=== PATIENT | male | born 1960 | race Caucasian/White ===

== ENCOUNTER 2019-12-08 20:09 | Inpatient (IN) | payer MEDICAID ==
[~2019-12-08] VITALS: Ht 190.5 cm; Wt 139.7 kg
[~2019-12-08 20:09] MED LIST: AMBIEN 10 MG TA10 MG PO; DESYREL300 MG PO; HYDROCODON-ACE1 EAC7 PO; LATUDA120 MG PO; LISINOPRIL2.5 MG PO; OMEPRAZOLE40 MG PO; REGLAN 10 MG TA10 MG PO; SENNA-TIME S T1 EACH PO; VITAMIN B-1100 M1 PO
[2019-12-08 20:12] VITALS: BP 171/110
[2019-12-08 20:49] LABS: ABSOLUTE BASOPHILS 0.1 thou/uL (0.0-0.2); ABSOLUTE LYMPHOCYTES 1.4 thou/uL (0.8-5.3); ABSOLUTE MONOCYTES 0.4 thou/uL (0.0-1.2); ABSOLUTE NEUTROPHILS 4.8 thou/uL (1.6-8.1); EOSINOPHILS 0.7 %; HEMATOCRIT 48.7 % (42.0-52.0); LYMPHOCYTES 21.4 %; MCH 32.5 pg (26.0-34.0); MCHC 34.9 g/dL (28.0-37.0); MCV 93.1 fL (80.0-100.0); MONOCYTES 6.5 %; MPV 7.8 fl. (7.2-11.1); NUCLEATED RBCS 0 /100WBC; PLATELET COUNT* 193 thou/uL (150-400); POLYS 70.4 %; RBC 5.23 mil/uL (4.50-6.00); RDW-CV 16.9 % (10.5-14.5); WBC 6.8 thou/uL (4.0-11.0)
[2019-12-08 20:58] LABS: CALCIUM 8.7 mg/dL (8.5-10.1); CREATININE 0.8 mg/dL (0.6-1.3); POTASSIUM 3.8 mmol/L (3.5-5.1)
[2019-12-08 21:02] LABS: APTT 25.2 Seconds (25.0-31.3); INR 0.9; PROTIME 9.7 Seconds (9.20-11.50)
[2019-12-08 21:08] LABS: ALBUMIN 3.9 g/dL (3.4-5.0); TOTAL BILIRUBIN 0.6 mg/dL (<0.1-1.0); TOTAL PROTEIN 7.6 g/dL (6.4-8.2)
[2019-12-08 23:25] VITALS: BP 177/111
[2019-12-09] VITALS (33 sets, daily range): BP systolic 72–202; BP diastolic 34–113
[2019-12-10] VITALS (23 sets, daily range): BP systolic 99–138; BP diastolic 58–84
[2019-12-10 03:18] LABS: ALBUMIN 2.7 g/dL (3.4-5.0); CALCIUM 6.9 mg/dL (8.5-10.1); CREATININE 1.1 mg/dL (0.6-1.3); MAGNESIUM 1.6 mg/dL (1.8-2.4); POTASSIUM 3.8 mmol/L (3.5-5.1); TOTAL PROTEIN 5.6 g/dL (6.4-8.2)
[2019-12-10 03:29] LABS: HEMATOCRIT 39.8 % (42.0-52.0); MCH 32.3 pg (26.0-34.0); MCHC 34.1 g/dL (28.0-37.0); MCV 94.5 fL (80.0-100.0); MPV 8.7 fl. (7.2-11.1); RBC 4.21 mil/uL (4.50-6.00); RDW-CV 17.1 % (10.5-14.5); WBC 5.9 thou/uL (4.0-11.0)
[2019-12-10 03:31] LABS: HEMOGLOBIN 13.6 gm/dL (14.0-18.0)
[2019-12-10 04:50] LABS: AMP/METHAMP Negative (Negative); BARBITURATES Negative (Negative); BENZODIAZEPINES POSITIVE (Negative); COCAINE Negative (Negative); METHADONE Negative (Negative); OPIATES Negative (Negative); PCP Negative (Negative); THC Negative (Negative)
[2019-12-11] VITALS (12 sets, daily range): BP systolic 110–166; BP diastolic 60–107
[2019-12-11 03:13] LABS: HEMATOCRIT 41.3 % (42.0-52.0); HEMOGLOBIN 14.2 gm/dL (14.0-18.0); MCH 32.7 pg (26.0-34.0); MCHC 34.4 g/dL (28.0-37.0); MCV 95.3 fL (80.0-100.0); MPV 8.8 fl. (7.2-11.1); RBC 4.34 mil/uL (4.50-6.00); RDW-CV 16.5 % (10.5-14.5); WBC 4.7 thou/uL (4.0-11.0)
[2019-12-11 03:25] LABS: CALCIUM 7.6 mg/dL (8.5-10.1); CREATININE 0.8 mg/dL (0.6-1.3); MAGNESIUM 2.2 mg/dL (1.8-2.4); POTASSIUM 3.9 mmol/L (3.5-5.1)
[2019-12-12 00:01] VITALS: BP 157/100
[2019-12-12 08:00] VITALS: BP 151/101
[2019-12-12] MEDS ORDERED: HYDROCHLOROTHIA25 M2 PO (11:17)
[2019-12-12] MEDS ORDERED: CLONIDINE HCL0.2 M2 PO (11:17)
[2019-12-12 11:49] VITALS: BP 161/100
[2019-12-12 13:37] VITALS: BP 161/100
--- NOTE | 2019-12-14 14:59 | EKG ---
[place] [address] ELECTROCARDIOGRAM REPORT Name: PATRICIA PEDRAZA Room: [address] IN [facility]#: [id number] Admission: 12/08/19 Attend Phys: Chichi gardner Sa Discharge: 12/12/19 Date of : 60 Date of Service: 12/08/192010 Report #: [id number] THIS REPORT FOR: //name// [facility] ED Test Date: 2019-12-08 Test Time: 20:11:56 Pat Name: PATRICIA PEDRAZA Department: Room: [facility] Gender: M Shopping Investigator: JUJU : 1960 Requested By: Linnea Gates Order Number: [id number] MD: Santi Barcenas Measurements Intervals [place] Rate: 115 P: 45 [place]: 168 QRS: 5 QRSD: 77 T: 26 QT: 316 QTc: 437 Interpretive Statements Sinus tachycardia Compared to ECG 11/22/2019 21:25:32 No significant changes Electronically Signed On 12-10-2019 10:21:46 REAL ESTATE OFFICE SUPERVISOR by Santi Barcenas [email or web address] <ELECTRONICALLY SIGNED> By: Santi Barcenas MD, FAC 12/10/19 1021 10 10 Santi Barcenas MD, [facility] /EPI
== END 2019-12-12 15:19 | disposition home or self-care (01) | DRG 384 ==
LOC: M.ERS 20:09 → M.TBA-ER 22:55 → M.ICU 22:55 → M.2W 12-11 22:58
PROVIDERS: Internal Medicine; Personal Emergency Response Attendant; ADMIT Family Medicine
DX: K27.9 Peptic ulcer, site unspecified, unspecified as acute or chronic, without hemorrhage or perforation (principal); F10.231 Alcohol dependence with withdrawal delirium; K20.9 Esophagitis, unspecified; I10 Essential (primary) hypertension; E66.9 Obesity, unspecified; Y90.9 Presence of alcohol in blood, level not specified; I25.118 Atherosclerotic heart disease of native coronary artery with other forms of angina pectoris; K31.84 Gastroparesis; G47.00 Insomnia, unspecified; I95.2 Hypotension due to drugs; T50.995A Adverse effect of other drugs, medicaments and biological substances, initial encounter; F10.229 Alcohol dependence with intoxication, unspecified; Z68.38 Body mass index [BMI] 38.0-38.9, adult; Z79.899 Other long term (current) drug therapy; Z87.11 Personal history of peptic ulcer disease; Y92.89 Other specified places as the place of occurrence of the external cause

== ENCOUNTER 2020-01-07 17:23 | Inpatient (IN) | payer MEDICAID ==
[~2020-01-07] VITALS: Ht 190.5 cm; Wt 138.4 kg
[~2020-01-07 17:23] MED LIST changes: +CLONIDINE HCL0.2 M2 PO; +HYDROCHLOROTHIA25 M2 PO
[2020-01-07 17:27] VITALS: BP 132/107
[2020-01-07 18:24] LABS: ABSOLUTE EOSINOPHILS 0.1 thou/uL (0.0-0.7)
[2020-01-07 18:35] LABS: CALCIUM 8.2 mg/dL (8.5-10.1); CREATININE 0.8 mg/dL (0.6-1.3); POTASSIUM 3.4 mmol/L (3.5-5.1)
[2020-01-07 18:44] LABS: ABSOLUTE MONOCYTES 0.7 thou/uL (0.0-1.2); ABSOLUTE NEUTROPHILS 5.4 thou/uL (1.6-8.1); BASOPHILS 0.3 %; HEMATOCRIT 50.3 % (42.0-52.0); LYMPHOCYTES 32.2 %; MCH 32.3 pg (26.0-34.0); MCHC 35.8 g/dL (28.0-37.0); MCV 90.2 fL (80.0-100.0); MPV 8.4 fl. (7.2-11.1); NUCLEATED RBCS 0 /100WBC; PLATELET COUNT* 219 thou/uL (150-400); POLYS 58.5 %; RBC 5.57 mil/uL (4.50-6.00); RDW-CV 14.3 % (10.5-14.5); WBC 9.3 thou/uL (4.0-11.0)
[2020-01-07 18:48] LABS: ALBUMIN 3.4 g/dL (3.4-5.0); MAGNESIUM 1.8 mg/dL (1.8-2.4); TOTAL BILIRUBIN 0.6 mg/dL (<0.1-1.0); TOTAL PROTEIN 7.1 g/dL (6.4-8.2)
[2020-01-07 20:25] VITALS: BP 143/87
[2020-01-07 23:47] VITALS: BP 143/91
[2020-01-07 23:48] VITALS: BP 116/75
[2020-01-08 04:11] VITALS: BP 156/102
[2020-01-08 07:51] LABS: CALCIUM 7.2 mg/dL (8.5-10.1); MAGNESIUM 1.6 mg/dL (1.8-2.4); PHOSPHORUS* 2.8 mg/dL (2.5-4.9); POTASSIUM 3.7 mmol/L (3.5-5.1)
[2020-01-08 08:00] VITALS: BP 153/105
--- NOTE | 2020-01-08 10:07 | EKG ---
[place] [address] ELECTROCARDIOGRAM REPORT Name: PATRICIA PEDRAZA Room: [address] IN ..#: [id number] Admission: 01/07/20 Attend Phys: Brie Treviño, Discharge: Date of : 60 Date of Service: 01/07/20 1728 Report #: [id number] THIS REPORT FOR: //name// [facility] ED Test Date: 2020-01-07 Test Time: 17:28:18 Pat Name: PATRICIA PEDRAZA Department: Room: [facility] Gender: M Sql Analyst: CCD : 1960 Requested By: Philly Monroy Order Number: [id number] MD: Fantasma Thomas Measurements Intervals [place] Rate: 111 P: 31 [place]: 170 QRS: 16 QRSD: 85 T: 12 QT: 332 QTc: 451 Interpretive Statements Sinus tachycardia Compared to ECG 12/08/2019 20:11:56 No significant changes Electronically Signed On 01-08-2020 10:06:11 CDT by Fantasma Thomas [email or web address] <ELECTRONICALLY SIGNED> By: Fantasma Thomas MD, [facility] 01/08/20 1006 1728 1728 Fantasma Thomas MD, [facility] /EPI
[2020-01-08 12:00] VITALS: BP 112/68
[2020-01-08 15:00] VITALS: BP 113/65
[2020-01-08 19:55] VITALS: BP 102/62
[2020-01-09] VITALS: BP 139/89
[2020-01-09 03:55] VITALS: BP 139/80
[2020-01-09 04:24] LABS: MCH 32.3 pg (26.0-34.0); MCHC 35.4 g/dL (28.0-37.0); MCV 91.3 fL (80.0-100.0); MPV 8.3 fl. (7.2-11.1); RBC 4.61 mil/uL (4.50-6.00); RDW-CV 13.6 % (10.5-14.5); WBC 6.7 thou/uL (4.0-11.0)
[2020-01-09 04:44] LABS: HEMOGLOBIN 14.9 gm/dL (14.0-18.0)
[2020-01-09 07:12] LABS: ALBUMIN 2.8 g/dL (3.4-5.0); CALCIUM 7.5 mg/dL (8.5-10.1); CREATININE 0.9 mg/dL (0.6-1.3); MAGNESIUM 1.9 mg/dL (1.8-2.4); POTASSIUM 3.5 mmol/L (3.5-5.1); TOTAL BILIRUBIN 0.9 mg/dL (<0.1-1.0); TOTAL PROTEIN 5.6 g/dL (6.4-8.2)
[2020-01-09 08:00] VITALS: BP 129/68
[2020-01-09 11:47] VITALS: BP 145/96
[2020-01-09 16:05] VITALS: BP 129/82
[2020-01-09 19:57] VITALS: BP 126/59
[2020-01-10 00:08] VITALS: BP 139/94
[2020-01-10 03:22] LABS: ABSOLUTE BASOPHILS 0.1 thou/uL (0.0-0.2); ABSOLUTE EOSINOPHILS 0.2 thou/uL (0.0-0.7); ABSOLUTE MONOCYTES 0.4 thou/uL (0.0-1.2); ABSOLUTE NEUTROPHILS 3.7 thou/uL (1.6-8.1); EOSINOPHILS 3.2 %; HEMATOCRIT 39.9 % (42.0-52.0); HEMOGLOBIN 14.3 gm/dL (14.0-18.0); LYMPHOCYTES 31.6 %; MCH 32.7 pg (26.0-34.0); MCHC 35.9 g/dL (28.0-37.0); MCV 91.1 fL (80.0-100.0); MONOCYTES 6.1 %; MPV 8.8 fl. (7.2-11.1); NUCLEATED RBCS 0 /100WBC; PLATELET COUNT* 137 thou/uL (150-400); POLYS 58.1 %; RBC 4.38 mil/uL (4.50-6.00); RDW-CV 13.7 % (10.5-14.5); WBC 6.3 thou/uL (4.0-11.0)
[2020-01-10 04:16] VITALS: BP 165/103
[2020-01-10 05:27] LABS: ALBUMIN 2.8 g/dL (3.4-5.0); CALCIUM 7.7 mg/dL (8.5-10.1); CREATININE 0.8 mg/dL (0.6-1.3); POTASSIUM 3.7 mmol/L (3.5-5.1); TOTAL BILIRUBIN 0.6 mg/dL (<0.1-1.0)
[2020-01-10 11:37] VITALS: BP 134/79
[2020-01-10] MEDS ORDERED: PRENATAL VITAM1 EACH PO (12:27)
[2020-01-10] MEDS ORDERED: ATIVAN2 MG PO (12:27)
[2020-01-10] MEDS ORDERED: VITAMIN B-1100 M2 PO (12:27)
[2020-01-10 12:55] VITALS: BP 134/79
== END 2020-01-10 14:30 | disposition home or self-care (01) | DRG 896 ==
LOC: M.ERS 17:23 → M.2W 18:51 → M.TBA-ER 18:51 → M.2W 20:10
PROVIDERS: Emergency Medicine Emergency Medical Services; Internal Medicine; ADMIT Internal Medicine
DX: F10.239 Alcohol dependence with withdrawal, unspecified (principal); E43 Unspecified severe protein-calorie malnutrition; I10 Essential (primary) hypertension; E66.9 Obesity, unspecified; I25.10 Atherosclerotic heart disease of native coronary artery without angina pectoris; K76.9 Liver disease, unspecified; Z68.38 Body mass index [BMI] 38.0-38.9, adult; Z87.11 Personal history of peptic ulcer disease; I25.2 Old myocardial infarction

== ENCOUNTER 2020-03-20 23:52 | Emergency (ER) | payer MEDICAID ==
[~2020-03-20] VITALS: Ht 190.5 cm; Wt 131.5 kg
[~2020-03-20 23:52] MED LIST changes: +ATIVAN2 MG PO; +PRENATAL VITAM1 EACH PO; +VITAMIN B-1100 M2 PO
[2020-03-21] MEDS ORDERED: LATUDA20 MG PO (00:02)
[2020-03-21] MEDS ORDERED: GLYBURIDE 5 MG T5 M1 PO (00:03)
[2020-03-21 00:22] LABS: HEMATOCRIT 45.9 % (42.0-52.0); MCH 32.6 pg (26.0-34.0); MCHC 34.8 g/dL (28.0-37.0); MCV 93.8 fL (80.0-100.0); MPV 7.6 fl. (7.2-11.1); RBC 4.89 mil/uL (4.50-6.00); RDW-CV 14.9 % (10.5-14.5); WBC 6.3 thou/uL (4.0-11.0)
[2020-03-21 00:33] LABS: CALCIUM 7.7 mg/dL (8.5-10.1); CREATININE 0.9 mg/dL (0.6-1.3); POTASSIUM 3.1 mmol/L (3.5-5.1)
[2020-03-21 00:35] LABS: INR 0.9; PROTIME 9.4 Seconds (9.20-11.50)
[2020-03-21 00:38] LABS: ALBUMIN 3.7 g/dL (3.4-5.0); TOTAL BILIRUBIN 0.6 mg/dL (<0.1-1.0); TOTAL PROTEIN 7.4 g/dL (6.4-8.2)
[2020-03-21 00:39] LABS: ACETAMINOPHEN < 2 ug/mL (10-30); ALCOHOL 333 mg/dL (<10); SALICYLATE < 2.8 mg/dL (2.8-20.0)
[2020-03-21 03:14] LABS: URINE BILIRUBIN NEGATIVE (Negative); URINE BLOOD TRACE (Negative); URINE CLARITY CLEAR; URINE COLOR YELLOW; URINE GLUCOSE-RANDOM NEGATIVE (Negative); URINE KETONES TRACE (Negative); URINE LEUKOCYTES NEGATIVE (Negative); URINE NITRITE NEGATIVE (Negative); URINE PROTEIN 1+ (Negative); URINE SPECIFIC GRAVITY 1.025 (1.005-1.030); URINE UROBILINOGEN 0.2 E.U./dl (0.2-1.0)
[2020-03-21 03:21] LABS: AMP/METHAMP Negative (Negative); BARBITURATES Negative (Negative); BENZODIAZEPINES POSITIVE (Negative); COCAINE Negative (Negative); METHADONE Negative (Negative); OPIATES Negative (Negative); PCP Negative (Negative); THC Negative (Negative)
[2020-03-21] MEDS ORDERED: CHLORDIAZEPOXID25 M1 PO (03:32)
[2020-03-21 03:50] VITALS: BP 155/93
--- NOTE | 2020-03-21 16:53 | EKG ---
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: : 1960 Requested By: Linnea Gates Order Number: [id number] MD: Fantasma Thomas Measurements Intervals [place] Rate: 101 P: 54 [place]: 168 QRS: 22 QRSD: 96 T: 38 QT: 358 QTc: 465 Interpretive Statements Sinus tachycardia Low voltage, extremity and precordial leads Compared to ECG 01/07/2020 17:28:18 Low QRS voltage now present Electronically Signed On 03-21-2020 16:52:03 CDT by Fantasma Thomas [email or web address] <ELECTRONICALLY SIGNED> By: Fantasma Thomas MD, [facility] 03/21/20 1652 2357 2357 Fantasma Thomas MD, [facility] /EPI
== END 2020-03-21 04:07 | disposition home or self-care (01) ==
LOC: M.ERS 23:52
PROVIDERS: Personal Emergency Response Attendant
DX: F10.229 Alcohol dependence with intoxication, unspecified (principal); F32.9 Major depressive disorder, single episode, unspecified; E66.9 Obesity, unspecified; R11.2 Nausea with vomiting, unspecified; I10 Essential (primary) hypertension; Z68.36 Body mass index [BMI] 36.0-36.9, adult; Z79.899 Other long term (current) drug therapy; Y90.0 Blood alcohol level of less than 20 mg/100 ml

== ENCOUNTER 2020-05-06 11:21 | Emergency (ER) | payer MEDICAID ==
[~2020-05-06] VITALS: Ht 190.5 cm; Wt 129.3 kg
[~2020-05-06 11:21] MED LIST changes: +CHLORDIAZEPOXID25 M1 PO; +GLYBURIDE 5 MG T5 M1 PO; +LATUDA20 MG PO
[2020-05-06 11:54] LABS: ABSOLUTE EOSINOPHILS 0.1 thou/uL (0.0-0.7); ABSOLUTE LYMPHOCYTES 2.2 thou/uL (0.8-5.3); ABSOLUTE MONOCYTES 0.7 thou/uL (0.0-1.2); BASOPHILS 0.3 %; EOSINOPHILS 0.7 %; HEMATOCRIT 51.9 % (42.0-52.0); HEMOGLOBIN 18.1 gm/dL (14.0-18.0); LYMPHOCYTES 24.1 %; MCH 32.8 pg (26.0-34.0); MCHC 34.9 g/dL (28.0-37.0); MCV 93.8 fL (80.0-100.0); MONOCYTES 7.5 %; MPV 7.8 fl. (7.2-11.1); NUCLEATED RBCS 0 /100WBC; PLATELET COUNT* 322 thou/uL (150-400); POLYS 67.4 %; RBC 5.53 mil/uL (4.50-6.00); WBC 8.9 thou/uL (4.0-11.0)
[2020-05-06 12:03] LABS: CALCIUM 7.9 mg/dL (8.5-10.1); CREATININE 0.9 mg/dL (0.6-1.3); POTASSIUM 3.3 mmol/L (3.5-5.1)
[2020-05-06 12:06] LABS: PROTIME 10.6 Seconds (9.20-11.50)
[2020-05-06 12:14] LABS: ALBUMIN 3.5 g/dL (3.4-5.0); TOTAL BILIRUBIN 0.4 mg/dL (<0.1-1.0); TOTAL PROTEIN 7.3 g/dL (6.4-8.2)
--- NOTE | 2020-05-06 16:06 | EKG ---
[place] [address] ELECTROCARDIOGRAM REPORT Name: PATRICIA PEDRAZA Room: [facility]#: [id number] Admission: 05/06/20 Attend Phys: Discharge: Date of : 60 Date of Service: 05/06/20 1127 Report #: [id number] THIS REPORT FOR: //name// [facility] ED Test Date: 2020-05-06 Test Time: 11:27:01 Pat Name: PATRICIA PEDRAZA Department: Room: Gender: Javascript Application Developer: [facility] : 1960 Requested By: Linnea Gates Order Number: [id number] MD: Fantasma Thomas Measurements Intervals [place] Rate: 121 P: -6 TN: 152 QRS: 23 QRSD: 102 T: 59 QT: 314 QTc: 446 Interpretive Statements Sinus tachycardia Marked Baseline wander inferior leads Compared to ECG 03/20/2020 23:57:52 Heart rate has increased Electronically Signed On 05-06-2020 16:06:26 CDT by Fantasma Thomas [email or web address] <ELECTRONICALLY SIGNED> By: Fantasma Thomas MD, [facility] 05/06/20 1606 1127 1127 Fantasma Thomas MD, [facility] /EPI
--- NOTE | 2020-05-06 16:07 | EKG ---
[place] [address] ELECTROCARDIOGRAM REPORT Name: PATRICIA PEDRAZA Room: [facility]#: [id number] Admission: 05/06/20 Attend Phys: Discharge: Date of : 60 Date of Service: 05/06/20 1150 Report #: [id number] THIS REPORT FOR: //name// [facility] ED Test Date: 2020-05-06 Test Time: 11:50:35 Pat Name: PATRICIA PEDRAZA Department: Room: Gender: Principal Planner: BINH : 1960 Requested By: Linnea Gates Order Number: [id number] MD: Fantasma Thomas Measurements Intervals [place] Rate: 117 P: 25 [place]: 168 QRS: 17 QRSD: 80 T: 37 QT: 317 QTc: 443 Interpretive Statements Sinus tachycardia Compared to ECG 05/06/2020 11:27:01 Myocardial infarct finding no longer present Electronically Signed On 05-06-2020 16:07:21 CDT by Fantasma Thomas [email or web address] <ELECTRONICALLY SIGNED> By: Fantasma Thomas MD, [facility] 05/06/20 1607 1150 1150 Fantasma Thomas MD, FAC /EPI
[2020-05-06] MEDS ORDERED: CHLORDIAZEPOXID25 M1 PO (18:09)
[2020-05-06] MEDS ORDERED: ATIVAN1 M1 PO (22:47)
[2020-05-06 23:00] VITALS: BP 137/90
== END 2020-05-06 23:05 | disposition home or self-care (01) ==
LOC: M.ERS 11:21
PROVIDERS: Personal Emergency Response Attendant
DX: F10.129 Alcohol abuse with intoxication, unspecified (principal); Y90.8 Blood alcohol level of 240 mg/100 ml or more; Z20.828 Contact with and (suspected) exposure to other viral communicable diseases; I10 Essential (primary) hypertension; E66.9 Obesity, unspecified; Z68.35 Body mass index [BMI] 35.0-35.9, adult

== ENCOUNTER 2020-05-20 21:08 | Inpatient (IN) | payer MEDICAID ==
[~2020-05-20] VITALS: Ht 190.5 cm; Wt 133.4 kg
[~2020-05-20 21:08] MED LIST changes: +ATIVAN1 M1 PO
[2020-05-20 21:16] VITALS: BP 137/80
[2020-05-20] MEDS ORDERED: PRINIVIL10 MG PO (21:19)
[2020-05-20 21:45] LABS: ABSOLUTE BASOPHILS 0.1 thou/uL (0.0-0.2); ABSOLUTE EOSINOPHILS 0.2 thou/uL (0.0-0.7); ABSOLUTE LYMPHOCYTES 2.5 thou/uL (0.8-5.3); ABSOLUTE MONOCYTES 0.5 thou/uL (0.0-1.2); ABSOLUTE NEUTROPHILS 2.6 thou/uL (1.6-8.1); BASOPHILS 1.1 %; EOSINOPHILS 2.6 %; HEMATOCRIT 46.8 % (42.0-52.0); HEMOGLOBIN 16.1 gm/dL (14.0-18.0); LYMPHOCYTES 42.8 %; MCH 32.6 pg (26.0-34.0); MCHC 34.4 g/dL (28.0-37.0); MCV 94.8 fL (80.0-100.0); MONOCYTES 9.2 %; MPV 7.9 fl. (7.2-11.1); NUCLEATED RBCS 0 /100WBC; PLATELET COUNT* 160 thou/uL (150-400); POLYS 44.3 %; RBC 4.93 mil/uL (4.50-6.00); RDW-CV 15.3 % (10.5-14.5); WBC 5.9 thou/uL (4.0-11.0)
[2020-05-20 21:57] LABS: CALCIUM 7.7 mg/dL (8.5-10.1); POTASSIUM 3.6 mmol/L (3.5-5.1); PROTIME 10.2 Seconds (9.20-11.50)
[2020-05-20 22:12] LABS: ALBUMIN 3.3 g/dL (3.4-5.0); MAGNESIUM 2.1 mg/dL (1.8-2.4); TOTAL BILIRUBIN 0.2 mg/dL (<0.1-1.0); TOTAL PROTEIN 6.7 g/dL (6.4-8.2)
[2020-05-21 04:00] VITALS: BP 123/95
[2020-05-21 07:51] VITALS: BP 133/101
--- NOTE | 2020-05-21 10:27 | EKG ---
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
--- NOTE | 2020-05-21 10:30 | NUR ---
DR. JACOME HAS CLEARED PT FOR CARDIAC ISSUES. AWAITING TO HEAR FROM DR. ZAMUDIO IF PATIENT IS CLEARED TO GO HOME.
[2020-05-21 11:51] VITALS: BP 158/111
[2020-05-21] MEDS ORDERED: PROTONIX40 M1 PO (11:52)
--- NOTE | 2020-05-21 12:03 | NUR ---
PER DR. ZAMUDIO, THE PATIENT CAN BE DISCHARGED TO FOLLOW UP WITH PCP, HAS A SCRIPT OF PROTONIX SENT TO PHARMACY ON FILE. CURRENTLY AWAITING INPATIENT RN TO DISCHARGE PATIENT FROM ER. PT CONTINUES TO BE CONNECTED TO ALL MONITORS, HAS AMBULATED TO RESTROOM AND BACK INDEPENDENTLY, GIVEN COKE TO DRINK AND EXPLAINED PLAN OF CARE AND IMPENDING DISCHARGE. PT VOICES UNDERSTANDING AND IS RESTING WITH IV FLUIDS INFUSING.
[2020-05-21 12:15] VITALS: BP 158/111
[2020-05-21 13:00] VITALS: BP 152/107
--- NOTE | 2020-05-22 14:25 | CON ---
[address] [address] CONSULTATION Name: PATRICIA PEDRAZA Room: [address] IN [facility].#: [id number] Admission: 05/20/20 Attend Phys: Aakash Ardon Discharge: 05/21/20 Date of : 60 Report #: [id number] THIS REPORT FOR: //name// cc: NONI [facility] family physician/PCP NONI - No family physician/PCP ~ THIS REPORT FOR: //name// CC: [facility] physician/PCP Troy Tian DATE OF SERVICE: 05/21/2020 CARDIOLOGY CONSULTATION HISTORY OF PRESENT ILLNESS: The patient is a 60-year-old single white male who I was asked to see in the hospital today after he complained of chest pain. The patient has had multiple hospitalizations here at [facility] in the past. He was admitted in November this year with chest pain, felt to be secondary to peptic ulcer disease. He apparently was diagnosed with esophagitis and upper gastrointestinal bleed. He has a history of alcohol abuse and went through withdrawal. He states he actually had hospital at [facility] 10 years ago, had a heart catheterization and there was no significant coronary artery disease. He has been treated medically since that time. He is not very active at this time because of arthritis. He has a history of alcohol abuse. In the past, he will drink 2/5 a day. He has been through many times. He apparently was recently admitted to [facility]. He was discharged to meet with his counselor and go to rehab. Yesterday, he drank a fifth of whiskey. He was watching TV last night when he felt some chest pressure. He felt diaphoretic, short of breath, nausea. Paramedics were called. He was brought here to [facility] by ambulance. The pain resolved after 2 hours. He denied the pain being related to fever or cough. He denied any bleeding. He denied the pain being related to taking a deep breath. He denied any recent trauma to his chest. Denied any belch with the episode. The pain did radiate into his right shoulder. He does get short of breath when he exerts himself. He notes occasional episodes of heart rate will increase, but has had no recent syncope. PAST MEDICAL HISTORY: He has had right shoulder surgery. He has a history of hypertension. He has a history of bipolar disorder. MEDICATIONS: On admission included Prilosec, clonidine, Librium, Reglan, hydrochlorothiazide, Ativan. He has lisinopril. ALLERGIES: He has no known drug allergies. FAMILY HISTORY: [place] [address] CONSULTATION Name: PATRICIA PEDRAZA Room: [address]#: [id number] Admission: 05/20/20 Attend Phys: Aakash Ardon Discharge: 05/21/20 Date of : 60 Report #: [id number] SOCIAL HISTORY: He is . Currently lives in a hotel here in [place]. He is on disability due to arthritis. No smoking. Still drinks every day. He has gone to AA in the past. No illicit drug use. REVIEW OF SYSTEMS: No history of stroke. He apparently had a seizure in the past. No history of asthma. He has a fatty liver. No hepatitis. No GI bleeding. He has had DTs in the past. No history of cancer. PHYSICAL EXAMINATION: GENERAL: Revealed a middle-aged male. He was 6 feet 3, weighing 290 pounds. VITAL SIGNS: Blood pressure 130/90, pulse 90, he is afebrile. HEENT: He was anicteric. Conjunctivae pink. Mucous membranes moist. NECK: Veins difficult to assess due to obesity. No carotid bruits. CHEST: Clear to auscultation. CARDIOVASCULAR: Regular rate and rhythm, no murmur. ABDOMEN: Obese. EXTREMITIES: Had no pitting edema. SKIN: Cool and dry. NEUROLOGIC: Nonfocal. His ECG on arrival last night showed a sinus rhythm. There was no ST- or T-wave change noted. The patient had an echocardiogram in November when he was here with alcohol withdrawal that showed ejection fraction of 65%, no significant valvular abnormalities. His workup last night, he had a portable chest x-ray that showed normal heart size and clear lung barragan. LABORATORY WORK: Sodium 140, creatinine 1.0. Troponins were all 0.06. His white blood cell count 5.9, hemoglobin 16.1. His urine drug screen positive for benzodiazepines. Alcohol level 275. IMPRESSION AND RECOMMENDATIONS: 1. History of alcohol abuse with seizures esophagitis and blackout spells in the past. Currently scheduled to undergo rehabilitation. 2. Intoxication. I would be concerned about delirium tremens. 3. Obesity. 4. Hypertension. The patient is on DEBORAH inhibitor. 5. Degenerative joint disease. 6. History of bipolar disorder. 7. Chest pain. No evidence of acute myocardial infarction. Recommend no further cardiac evaluation. Suspect GI. <ELECTRONICALLY SIGNED> By: Santi Barcenas MD, [facility] 05/22/20 1425 0917 1026David Vi Barcenas MD, FACC /nt
== END 2020-05-21 12:58 | disposition home or self-care (01) | DRG 392 ==
LOC: M.ERS 21:08 → M.TBA-ER 23:58
PROVIDERS: Emergency Medicine; ADMIT Internal Medicine; ATTEND Internal Medicine
DX: K29.20 Alcoholic gastritis without bleeding (principal); I10 Essential (primary) hypertension; E66.9 Obesity, unspecified; I25.10 Atherosclerotic heart disease of native coronary artery without angina pectoris; F31.9 Bipolar disorder, unspecified; F10.129 Alcohol abuse with intoxication, unspecified; M19.90 Unspecified osteoarthritis, unspecified site; Z20.828 Contact with and (suspected) exposure to other viral communicable diseases; Z68.36 Body mass index [BMI] 36.0-36.9, adult; Z87.11 Personal history of peptic ulcer disease; Z82.49 Family history of ischemic heart disease and other diseases of the circulatory system; Z79.899 Other long term (current) drug therapy

== ENCOUNTER 2020-09-14 11:06 | Inpatient (IN) | payer MEDICAID ==
[~2020-09-14] VITALS: Ht 193 cm; Wt 135.6 kg
[~2020-09-14 11:06] MED LIST changes: +PRINIVIL10 MG PO; +PROTONIX40 M1 PO
[2020-09-14 11:08] VITALS: BP 162/104
[2020-09-14 11:45] LABS: ABSOLUTE BASOPHILS 0.1 thou/uL (0.0-0.2); ABSOLUTE EOSINOPHILS 0.1 thou/uL (0.0-0.7); ABSOLUTE LYMPHOCYTES 1.7 thou/uL (0.8-5.3); ABSOLUTE MONOCYTES 0.5 thou/uL (0.0-1.2); ABSOLUTE NEUTROPHILS 2.2 thou/uL (1.6-8.1); BASOPHILS 2.7 %; EOSINOPHILS 2.5 %; HEMATOCRIT 50.7 % (42.0-52.0); HEMOGLOBIN 17.4 gm/dL (14.0-18.0); LYMPHOCYTES 37.3 %; MCH 33.4 pg (26.0-34.0); MCHC 34.3 g/dL (28.0-37.0); MCV 97.6 fL (80.0-100.0); MONOCYTES 9.8 %; MPV 7.4 fl. (7.2-11.1); NUCLEATED RBCS 0 /100WBC; PLATELET COUNT* 307 thou/uL (150-400); POLYS 47.7 %; RBC 5.19 mil/uL (4.50-6.00); RDW-CV 15.4 % (10.5-14.5); WBC 4.6 thou/uL (4.0-11.0)
[2020-09-14 11:54] LABS: CALCIUM 7.8 mg/dL (8.5-10.1); CREATININE 0.7 mg/dL (0.6-1.3); POTASSIUM 3.9 mmol/L (3.5-5.1)
[2020-09-14 11:57] LABS: APTT 26.7 Seconds (25.0-31.3); PROTIME 10.9 Seconds (9.20-11.50)
[2020-09-14 11:58] LABS: ALBUMIN 3.5 g/dL (3.4-5.0); TOTAL BILIRUBIN 0.6 mg/dL (<0.1-1.0); TOTAL PROTEIN 7.6 g/dL (6.4-8.2)
[2020-09-14 12:00] LABS: ALCOHOL 339 mg/dL (<10)
[2020-09-14 12:01] LABS: ACETAMINOPHEN < 2 ug/mL (10-30); SALICYLATE < 2.8 mg/dL (2.8-20.0)
[2020-09-14 12:19] LABS: MAGNESIUM 2.4 mg/dL (1.8-2.4)
[2020-09-14 17:16] LABS: URINE BILIRUBIN NEGATIVE (Negative); URINE BLOOD NEGATIVE (Negative); URINE CLARITY CLEAR; URINE COLOR YELLOW; URINE GLUCOSE-RANDOM NEGATIVE (Negative); URINE KETONES NEGATIVE (Negative); URINE LEUKOCYTES-REFLEX NEGATIVE (Negative); URINE NITRITE-REFLEX NEGATIVE (Negative); URINE PROTEIN NEGATIVE (Negative); URINE SPECIFIC GRAVITY 1.015 (1.005-1.030); URINE UROBILINOGEN 0.2 E.U./dl (0.2-1.0)
[2020-09-14 17:23] LABS: AMP/METHAMP Negative (Negative); BARBITURATES Negative (Negative); BENZODIAZEPINES POSITIVE (Negative); COCAINE Negative (Negative); METHADONE Negative (Negative); OPIATES Negative (Negative); PCP Negative (Negative); THC Negative (Negative)
[2020-09-15] VITALS (7 sets, daily range): BP systolic 137–180; BP diastolic 77–100
[2020-09-15] MEDS ORDERED: LATUDA20 MG PO (02:46)
[2020-09-15] MEDS ORDERED: LISINOPRIL10 MG PO (02:47)
[2020-09-15] MEDS ORDERED: KAPSPARGO SPRIN50 MG PO (02:48)
--- NOTE | 2020-09-15 11:38 | EKG ---
[place] [address] ELECTROCARDIOGRAM REPORT Name: PEDRAZAPATRICIA Polo Room: [address] ADM IN 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: CCD : 1960 Requested By: Willem Oconnor Order Number: [id number] MD: Santi Barcenas Measurements Intervals [place] Rate: 105 P: 35 [place]: 180 QRS: 8 QRSD: 83 T: 34 QT: 339 QTc: 449 Interpretive Statements Sinus tachycardia Low voltage, precordial leads Compared to ECG 05/20/2020 21:13:18 Low QRS voltage now present Electronically Signed On 09-15-2020 11:37:49 HOTEL MANAGER by Santi Barcenas [email or web address] <ELECTRONICALLY SIGNED> By: Santi Barcenas MD, FACC 09/15/20 1137 1109 1109 Santi Barcenas MD, [facility] /EPI
[2020-09-16 04:00] VITALS: BP 133/85
[2020-09-16 04:14] LABS: HEMATOCRIT 44.7 % (42.0-52.0); MCH 33.1 pg (26.0-34.0); MCHC 34.3 g/dL (28.0-37.0); MCV 96.7 fL (80.0-100.0); MPV 8.4 fl. (7.2-11.1); RBC 4.62 mil/uL (4.50-6.00); RDW-CV 15.3 % (10.5-14.5); WBC 5.5 thou/uL (4.0-11.0)
[2020-09-16 04:33] LABS: HEMOGLOBIN 15.3 gm/dL (14.0-18.0)
[2020-09-16 04:36] LABS: CALCIUM 7.5 mg/dL (8.5-10.1); CREATININE 0.7 mg/dL (0.6-1.3); MAGNESIUM 1.9 mg/dL (1.8-2.4)
[2020-09-16 05:11] LABS: ALBUMIN 3.1 g/dL (3.4-5.0); CALCIUM 7.8 mg/dL (8.5-10.1); CREATININE 0.7 mg/dL (0.6-1.3); POTASSIUM 3.3 mmol/L (3.5-5.1); TOTAL BILIRUBIN 1.4 mg/dL (<0.1-1.0)
--- NOTE | 2020-09-16 07:50 | CON ---
[address] [address] CONSULTATION Name: PATRICIA PEDRAZA Room: [address] IN .R.#: [id number] Admission: 09/14/20 Attend Phys: Tremayne Alanis, Discharge: Date of : 60 Report #: [id number] THIS REPORT FOR: //name// cc: NONI - No family physician/PCP FAM - No family physician/PCP ~ INDICATION: Chest pain. HISTORY OF PRESENT ILLNESS: The patient is a 60-year-old gentleman who was evaluated in the emergency room. He has a long history of alcohol abuse. He presents intoxicated with complaints of midsternal chest discomfort that started early this morning. A 12-lead EKG shows sinus rhythm with no acute ST or T-wave abnormalities. There is no indication of ischemia. Cardiac enzymes are negative x 2 sets. The patient also reports some suicidal ideation. Presently being evaluated for possible psychiatric admission. He has had multiple hospitalizations here at [facility] with episodes of chest pain. In the past, this has been felt to be due to peptic ulcer disease and gastrointestinal origin. Catheterization approximately 10 years ago showed no evidence of coronary artery disease. PAST MEDICAL HISTORY: 1. History of right shoulder surgery. 2. History of hypertension. 3. History of bipolar disorder. 4. Recent cholecystectomy. ALLERGIES: None documented. HOME MEDICATIONS: None documented. He does report taking lisinopril and recently he was started on metoprolol. FAMILY HISTORY: The patient reports that his father had heart disease. SOCIAL HISTORY: The patient is . He drinks alcohol daily. He has attended AA in the past. REVIEW OF SYSTEMS: A 14-point review of systems is positive for chest discomfort, insomnia, fatty liver, history of DTs in the past. Otherwise, unremarkable. PHYSICAL EXAMINATION: VITAL SIGNS: Blood pressure 162/104, pulse 105. GENERAL: This is a pleasant gentleman who appears comfortable. HEENT: Head is normocephalic, atraumatic. Extraocular muscles intact. [place] [address] CONSULTATION Name: PATRICIA PEDRAZA Room: [address]#: [id number] Admission: 09/14/20 Attend Phys: Tremayne Alanis, Discharge: Date of : 60 Report #: [id number] NECK: Shows no jugular venous distention. CHEST: Reveals clear lung barragan. CARDIOVASCULAR: Reveals a regular rhythm with normal S1 and S2. I do not appreciate gallop or murmur. ABDOMEN: Reveals normal bowel sounds. The abdomen is soft, nontender. EXTREMITIES: Shows no edema. SKIN: Dry. LABORATORY DATA: Labs are reviewed. Electrolytes are within normal limits. Renal function appears normal. LFTs are within normal limits with the exception of a minimally elevated alkaline phosphatase of 120. Troponins are less than 0.06. NT-proBNP is 24. White blood cell count 4.6. Hemoglobin 17.4. Platelet count 307,000. EtOH level 339. Chest x-ray showed no acute process. IMPRESSION AND RECOMMENDATIONS: 1. Chest pain does not appear cardiac in nature. I would suspect more of a gastroenterological etiology. I would recommend resuming proton pump inhibitor. No further cardiac workup needed. 2. Hypertension. Resume lisinopril and metoprolol. 3. Tachycardia, likely due to acute intoxication would recommend rehydration with IV normal saline. At this point in time, the patient appears stable from a cardiac standpoint. <ELECTRONICALLY SIGNED> By: Dexter Strong MD, FACC 09/16/20 0750 1307 1406Micterry Strong MD, FACC /nt
[2020-09-16 08:39] VITALS: BP 150/104
[2020-09-16 12:30] VITALS: BP 143/96
[2020-09-16 16:00] VITALS: BP 135/92
[2020-09-16 18:11] LABS: CALCIUM 7.3 mg/dL (8.5-10.1); CREATININE 0.8 mg/dL (0.6-1.3); POTASSIUM 3.9 mmol/L (3.5-5.1)
[2020-09-16 20:00] VITALS: BP 146/94
[2020-09-17] VITALS: BP 115/75
[2020-09-17 04:00] VITALS: BP 147/93
[2020-09-17 08:30] VITALS: BP 151/95
[2020-09-17 09:31] LABS: HEMOGLOBIN 14.9 gm/dL (14.0-18.0); MCH 33.9 pg (26.0-34.0); MCHC 34.6 g/dL (28.0-37.0); MCV 97.8 fL (80.0-100.0); MPV 8.4 fl. (7.2-11.1); RBC 4.4 mil/uL (4.50-6.00); RDW-CV 15.1 % (10.5-14.5); WBC 5.7 thou/uL (4.0-11.0)
[2020-09-17 09:52] LABS: ALBUMIN 2.9 g/dL (3.4-5.0); CALCIUM 7.4 mg/dL (8.5-10.1); CREATININE 0.7 mg/dL (0.6-1.3); MAGNESIUM 1.8 mg/dL (1.8-2.4); POTASSIUM 3.5 mmol/L (3.5-5.1); TOTAL PROTEIN 6.3 g/dL (6.4-8.2)
[2020-09-17 11:00] VITALS: BP 134/58
[2020-09-17 16:00] VITALS: BP 130/76
[2020-09-17 20:00] VITALS: BP 164/99
[2020-09-18] VITALS: BP 158/98
[2020-09-18 04:00] VITALS: BP 137/78
[2020-09-18 04:36] LABS: HEMATOCRIT 42.4 % (42.0-52.0); HEMOGLOBIN 14.6 gm/dL (14.0-18.0); MCH 33.7 pg (26.0-34.0); MCHC 34.4 g/dL (28.0-37.0); MCV 97.9 fL (80.0-100.0); RBC 4.33 mil/uL (4.50-6.00); RDW-CV 14.5 % (10.5-14.5); WBC 6.9 thou/uL (4.0-11.0)
[2020-09-18 05:12] LABS: ALBUMIN 2.9 g/dL (3.4-5.0); CALCIUM 7.9 mg/dL (8.5-10.1); CREATININE 0.6 mg/dL (0.6-1.3); MAGNESIUM 1.8 mg/dL (1.8-2.4); POTASSIUM 3.1 mmol/L (3.5-5.1); TOTAL PROTEIN 6.3 g/dL (6.4-8.2)
[2020-09-18 08:45] VITALS: BP 142/92
[2020-09-18] MEDS ORDERED: TOPROL XL100 MG PO (11:20)
[2020-09-18] MEDS ORDERED: BENAZEPRIL HCL20 MG PO (11:22)
[2020-09-18] MEDS ORDERED: VITAMIN B-1100 M1 PO (11:23)
[2020-09-18] MEDS ORDERED: PRENATAL PO (11:24)
[2020-09-18] MEDS ORDERED: DESYREL300 MG PO (11:25)
[2020-09-18] MEDS ORDERED: GLYBURIDE 5 MG T5 M1 PO (11:27)
[2020-09-18] MEDS ORDERED: PEPCID20 MG PO (11:29)
[2020-09-18 11:59] VITALS: BP 143/100
[2020-09-18 12:05] VITALS: BP 143/100
== END 2020-09-18 15:41 | disposition home or self-care (01) | DRG 897 ==
LOC: M.ERS 11:06 → M.TBA-ER 23:04 → M.2W 23:04 → M.TBA-ER 23:57 → M.2W 09-15 01:20
PROVIDERS: Emergency Medicine; Emergency Medicine Emergency Medical Services; ADMIT Family Medicine; ATTEND Family Medicine
DX: F10.139 Alcohol abuse with withdrawal, unspecified (principal); R45.851 Suicidal ideations; I10 Essential (primary) hypertension; F32.9 Major depressive disorder, single episode, unspecified; E66.01 Morbid (severe) obesity due to excess calories; K21.9 Gastro-esophageal reflux disease without esophagitis; E87.8 Other disorders of electrolyte and fluid balance, not elsewhere classified; Z68.36 Body mass index [BMI] 36.0-36.9, adult; I25.2 Old myocardial infarction; Z82.49 Family history of ischemic heart disease and other diseases of the circulatory system; Z20.828 Contact with and (suspected) exposure to other viral communicable diseases

== ENCOUNTER 2020-09-22 11:57 | Emergency (ER) | payer MEDICAID ==
[~2020-09-22] VITALS: Ht 193 cm; Wt 129.3 kg
[~2020-09-22 11:57] MED LIST changes: +BENAZEPRIL HCL20 MG PO; +KAPSPARGO SPRIN50 MG PO; +LISINOPRIL10 MG PO; +PEPCID20 MG PO; +PRENATAL PO; +TOPROL XL100 MG PO
[2020-09-22 12:28] LABS: ABSOLUTE BASOPHILS 0.1 thou/uL (0.0-0.2); ABSOLUTE EOSINOPHILS 0.2 thou/uL (0.0-0.7); ABSOLUTE LYMPHOCYTES 2.6 thou/uL (0.8-5.3); ABSOLUTE MONOCYTES 0.8 thou/uL (0.0-1.2); ABSOLUTE NEUTROPHILS 2.4 thou/uL (1.6-8.1); BASOPHILS 0.8 %; EOSINOPHILS 2.8 %; HEMATOCRIT 54.3 % (42.0-52.0); HEMOGLOBIN 18.6 gm/dL (14.0-18.0); LYMPHOCYTES 43.5 %; MCH 33.5 pg (26.0-34.0); MCHC 34.2 g/dL (28.0-37.0); MONOCYTES 12.7 %; MPV 7.4 fl. (7.2-11.1); NUCLEATED RBCS 0 /100WBC; PLATELET COUNT* 207 thou/uL (150-400); POLYS 40.2 %; RBC 5.54 mil/uL (4.50-6.00); RDW-CV 14.8 % (10.5-14.5)
[2020-09-22 13:00] LABS: ALCOHOL 366 mg/dL (<10)
[2020-09-22 13:01] LABS: ACETAMINOPHEN < 2 ug/mL (10-30); SALICYLATE < 2.8 mg/dL (2.8-20.0)
[2020-09-22 13:20] LABS: CREATININE 0.8 mg/dL (0.6-1.3); POTASSIUM 3.7 mmol/L (3.5-5.1)
[2020-09-22 13:30] LABS: ALBUMIN 3.8 g/dL (3.4-5.0); TOTAL BILIRUBIN 0.7 mg/dL (<0.1-1.0); TOTAL PROTEIN 8.1 g/dL (6.4-8.2)
[2020-09-22 15:40] LABS: URINE BILIRUBIN NEGATIVE (Negative); URINE BLOOD NEGATIVE (Negative); URINE CLARITY CLEAR; URINE COLOR YELLOW; URINE GLUCOSE-RANDOM NEGATIVE (Negative); URINE KETONES NEGATIVE (Negative); URINE LEUKOCYTES-REFLEX NEGATIVE (Negative); URINE NITRITE-REFLEX NEGATIVE (Negative); URINE PROTEIN NEGATIVE (Negative); URINE SPECIFIC GRAVITY <= 1.005 (1.005-1.030); URINE UROBILINOGEN 0.2 E.U./dl (0.2-1.0)
[2020-09-22 15:48] LABS: AMP/METHAMP Negative (Negative); BARBITURATES Negative (Negative); BENZODIAZEPINES POSITIVE (Negative); COCAINE Negative (Negative); METHADONE Negative (Negative); OPIATES Negative (Negative); PCP Negative (Negative); THC Negative (Negative)
[2020-09-22 19:14] VITALS: BP 120/81
[2020-09-22] MEDS ORDERED: CHLORDIAZEPOXID25 M1 PO (20:10)
== END 2020-09-22 19:15 | disposition home or self-care (01) ==
LOC: M.ERS 11:57
PROVIDERS: Family Medicine
DX: R45.851 Suicidal ideations (principal); F10.129 Alcohol abuse with intoxication, unspecified; Y90.8 Blood alcohol level of 240 mg/100 ml or more; Z20.828 Contact with and (suspected) exposure to other viral communicable diseases; I10 Essential (primary) hypertension; K31.84 Gastroparesis; E66.9 Obesity, unspecified; Z68.34 Body mass index [BMI] 34.0-34.9, adult; Z79.899 Other long term (current) drug therapy